=== PATIENT | female | born 1965 | race Caucasian/White ===

== ENCOUNTER 2016-08-21 09:50 | Day surgery (SDC) | payer BC ==
[2016-08-20 08:40] VITALS: BMI 18.0
[~2016-08-21 09:50] MED LIST: LACTATED RINGERS 1,000 ML IV SCH; LIDOCAINE 1% 20 ML VIAL (10MG/ML) FOR IV START INTRADERMA PRN
[2016-08-21 10:06] VITALS: RESP 16; TEMP 97.7
[2016-08-21] MEDS ORDERED: PROPOFOL 10 MG/ML 20 ML VIAL IV ONE (10:24)
--- NOTE | 2016-08-21 10:28 | P.GSHP ---
History of Present Illness H&P Date: 08/21/16 Chief Complaint: Family history of colon cancer 51 years old female presents for screening colonoscopy. Last colonoscopy was at age 38 for chronic diarrhea. Strong family history of colon cancer in mother age 50, father at age 55 and maternal uncles. No change in bowel habits. No weight loss or loss of appetite - Review of Systems Comment: All negative except stated in history of present illness Past Medical History Past Medical History: Thyroid Disorder Additional Past Medical History / Comment(s): intermittent abd pain and bleeding with stools,PM>1yr History of Any Multi-Drug Resistant Organisms: None Reported Past Surgical History: Back Surgery, Orthopedic Surgery Additional Past Surgical History / Comment(s): lumbar fusion,ORIF lt clavicle Past Anesthesia/Blood Transfusion Reactions: Motion Sickness, Postoperative Nausea & Vomiting (PONV) Smoking Status: Never smoker Past Alcohol Use History: Occasional Past Drug Use History: None Reported - Past Family History Mother Family Medical History: No Reported History Father Family Medical History: Cancer, Myocardial Infarction ([place]) Additional Family Medical History / Comment(s): colon Medications and Allergies Home Medications Medication Instructions Recorded Confirmed Type Levothyroxine Sodium [Synthroid] 2,580 mcg PO QAM 08/20/16 08/21/16 History Allergies Allergy/AdvReac Type Severity Reaction Status Date / Time No Known Allergies Allergy Verified 08/21/16 10:04 Surgical - Exam Vital Signs Temp Pulse Resp BP Pulse Ox 97.7 F 68 16 105/67 99 08/21/16 10:06 08/21/16 10:06 08/21/16 10:06 08/21/16 10:06 08/21/16 10:06 Constitutional: General Appearance: well-developed Psychiatric: Insight: good judgement. Orientation: to time, place, and person. Head: Head: normocephalic and atraumatic. Eyes: Lids and Conjunctivae: no discharge or pallor and non-injected. Sclerae: non-icteric. ENMT: Oropharynx: moist mucous membranes. Abdomen: Bowel Sounds: normal. Inspection and Palpation: no tenderness or guarding and soft and non-distended. Musculoskeletal:: Motor Strength and Tone: normal and normal tone. Joints, Bones , and Muscles: normal movement of all extremities. Extremities: no cyanosis or edema. Neurologic: Gait and Station: normal gait and station. Cranial Nerves: grossly intact. Assessment and Plan (1) Family history of colon cancer Status: Acute Plan: 1. Screening colonoscopy 2. Informed consent obtained for colonoscopy with possible biopsy. The risks, benefits and potential complications explained including bleeding and perforation
--- NOTE | 2016-08-21 10:48 | P.OP ---
Date of Procedure: 08/21/16 Preoperative Diagnosis: Family history of colon cancer in multiple first degree relatives including both parents Postoperative Diagnosis: Same Procedure(s) Performed: Colonoscopy without biopsy Implants: Anesthesia: MAC Surgeon: Emmy Obrien Pathology: none sent Condition: stable Disposition: PACU Indications for Procedure: 51 years old female with strong family history of colon cancer in both parents, maternal uncles presents for screening colonoscopy. Last colonoscopy was 13 years ago. Informed consent obtained and patient elected to undergo colonoscopy with possible biopsy Operative Findings: Normal colonoscopy. Small internal hemorrhoids Description of Procedure: The patient was brought to the endoscopy suite and placed in lateral decubitus position. IV sedation was given as per anesthesia team. Patient was on continuous vitals and pulse oximetry monitoring throughout the procedure. A timeout was performed to verify correct patient and correct procedure. Perianal examination did not show any external hemorrhoids. Digital rectal examination was performed. No masses or gross blood. A well-lubricated Olympus colonoscope was passed per rectally and was gradually advanced beyond the sigmoid colon, splenic flexure, transverse colon, hepatic flexure and cecum. The ileocecal valve was visualized as well as the appendiceal orifice . The colonoscope was gradually withdrawn inspecting all the mucosal surfaces. Bowel prep was fair. No polyps, masses, AV malformations noted. No diverticulosis. The scope was gradually withdrawn and retroflexed in the rectum . Grade 1 internal hemorrhoids seen. Total withdrawal time was greater than 6 minutes . Patient tolerated the procedure well and was taken to post anesthesia care unit in stable condition. Recommend repeat colonoscopy in 5 years .
[2016-08-21] MEDS ORDERED: diphenhydrAMINE 50 MG/ML 1 ML VIAL IVP ONE (11:19)
[2016-08-21] MEDS ORDERED: DEXAMETHASONE SOD PHOSPHATE 10 MG/ML 1 ML VIAL IV ONE ×2 (11:21→12:47)
[2016-08-21] MEDS ORDERED: LACTATED RINGERS 1,000 ML IV ONE (12:08)
[2016-08-21] MEDS ORDERED: HYDROmorphone 2 MG/ML 1 ML SYRINGE IVP ONE (12:09)
[2016-08-21 13:05] VITALS: BP 111/74; PULSE 66
== END 2016-08-21 13:28 | disposition home or self-care (01) ==
LOC: ORWHC2ENDO 09:50
PROVIDERS: ATTEND Surgery
DX: Z12.11 Encounter for screening for malignant neoplasm of colon (principal); K64.0 First degree hemorrhoids; Z80.0 Family history of malignant neoplasm of digestive organs; E07.9 Disorder of thyroid, unspecified; Z79.899 Other long term (current) drug therapy
CPT/HCPCS: J1170; J1200; J1100; J2704; G0105

== ENCOUNTER → 2019-10-07 | Outpatient (CLI) | payer OTHER ==
[2019-10-07 15:09] LABS: Basophils # (A) 0.1 k/uL (0-0.2); Basophils % (A) 1 %; Eosinophils # (A) 0.3 k/uL (0-0.7); Eosinophils % (A) 5 %; HCT 38.6 % (34.0-46.0); HGB 13.2 gm/dL (11.4-16.0); Lymphocytes % (A) 30 %; MCH 30.9 pg (25.0-35.0); MCHC 34.1 g/dL (31.0-37.0); MCV 90.5 fL (80.0-100.0); Monocytes # (A) 0.3 k/uL (0-1.0); Monocytes % (A) 5 %; Neutrophils # (A) 3.8 k/uL (1.3-7.7); Neutrophils % (A) 57 %; Platelet Count 307 k/uL (150-450); RBC 4.26 m/uL (3.80-5.40); RDW 12.2 % (11.5-15.5); WBC 6.7 k/uL (3.8-10.6)
[2019-10-08 00:21] LABS: Hemoglobin A1C 5.1 % (4.0-6.0)
[2019-10-08 01:14] LABS: ALT 25 U/L (8-44); AST 21 U/L (13-35); African American GFR (CKD) 95.5 (60.0-200.0); Albumin/Globulin Ratio 1.95 (1.60-3.17); Alkaline Phosphatase 71 U/L (41-126); Carbon Dioxide 25.8 mmol/L (21.6-31.8); Chloride 104 mmol/L (96-109); Chol/HDL Ratio 1.94; Cholesterol 151 mg/dL (0-200); Globulin 2.2 g/dL (1.6-3.3); Glucose 96 mg/dL (70-110); LDL Cholesterol,Calculated 61.6 mg/dL (0.0-131.0); Non-African American GFR(CKD) 82.4 (60.0-200.0); Sodium 139 mmol/L (135-145); Total Protein 6.5 g/dL (6.2-8.2)
== END | disposition home or self-care (01) ==
LOC: LABWHC1 13:48
PROVIDERS: ATTEND Internal Medicine Critical Care Medicine
DX: Z00.00 Encounter for general adult medical examination without abnormal findings (principal); R53.83 Other fatigue; E55.9 Vitamin D deficiency, unspecified; Z79.899 Other long term (current) drug therapy
CPT/HCPCS: 36415; 80053; 80061; 82248; 82306; 83036; 84439; 84443; 85025

== ENCOUNTER → 2022-01-24 | Outpatient (CLI) | payer BC ==
[2022-01-24 19:10] LABS: Basophils % (A) 1.5 %; Eosinophils # (A) 0.31 X 10*3/uL (0.04-0.35); Eosinophils % (A) 4.6 %; HCT 39.9 % (37.2-46.3); Immature Grans, Automated 0.1 %; Lymphocytes # (A) 1.72 X 10*3/uL (0.90-5.00); Lymphocytes % (A) 25.7 %; MCH 29.1 pg (27.0-32.0); MCHC 32.6 g/dL (32.0-37.0); MCV 89.3 fL (80.0-97.0); Mean Platelet Volume 9.5 fL (9.5-12.2); Monocytes # (A) 0.43 X 10*3/uL (0.20-1.00); Monocytes % (A) 6.4 %; NRBC Per 100 WBC 0 /100 WBCS (0.0-0.0); Neutrophils # (A) 4.12 X 10*3/uL (1.80-7.70); Neutrophils % (A) 61.7 %; Platelet Count 331 X 10*3/uL (140-440); RBC 4.47 X 10*6/uL (4.10-5.20); RDW 12.2 % (11.5-14.5); WBC 6.69 X 10*3/uL (4.50-10.00)
[2022-01-24 20:53] LABS: Chol/HDL Ratio 2.06 Ratio
[2022-01-24 21:08] LABS: ALT 27 U/L (8-44); AST 29 U/L (13-35); African American GFR (CKD) 94.2 (60.0-200.0); Albumin 4.6 g/dL (3.8-4.9); Albumin/Globulin Ratio 1.84 (1.60-3.17); Alkaline Phosphatase 69 U/L (41-126); BUN/Creat Ratio 17.13 Ratio (12.00-20.00); Bilirubin, Conjugated <0.20 mg/dL (0.20-0.40); Blood Urea Nitrogen 13.7 mg/dL (9.0-27.0); Calcium 9.3 mg/dL (8.7-10.3); Carbon Dioxide 24.4 mmol/L (20.0-27.5); Chloride 101 mmol/L (96-109); Globulin 2.5 g/dL (1.6-3.3); Glucose 132 mg/dL (70-110); Non-African American GFR(CKD) 81.3 (60.0-200.0); Potassium 4.1 mmol/L (3.5-5.5); Sodium 139 mmol/L (135-145); Total Protein 7.1 g/dL (6.2-8.2)
== END | disposition home or self-care (01) ==
LOC: LABWHC1 12:32
PROVIDERS: ATTEND Internal Medicine Critical Care Medicine
DX: Z00.00 Encounter for general adult medical examination without abnormal findings (principal); C44.91 Basal cell carcinoma of skin, unspecified; E03.9 Hypothyroidism, unspecified
CPT/HCPCS: 36415; 80053; 80061; 82248; 82306; 83036; 83721; 84439; 84443; 85025

== ENCOUNTER → 2024-08-25 | Outpatient (CLI) | payer BC ==
--- NOTE | 2024-08-25 08:43 | MM ---
Reason for Exam: Screening (asymptomatic). Last mammogram was performed 16 year(s) and 6 month(s) ago. Patient History: Menarche at age 12. First Full-Term at age 33. Late child-bearing (after 30). Postmenopausal. Other cancer, age 38. Currently using Unspecified Hormone, beginning at age 37 for 4 years. Risk Values: Mellissa 5 year model risk: 1.9%. NCI Lifetime model risk: 8.9%. Prior Study Comparison: 08/30/2005 Bilateral Diagnostic Mammogram, [facility]. 10/02/2006 Bilateral Diagnostic Mammogram, [facility]. 02/29/2008 Bilateral Screening Mammogram, [facility]. Tissue Density: The breasts are heterogeneously dense, which may obscure small masses. Findings: Analyzed By CAD. Right breast: There is no suspicious group of microcalcifications or new suspicious mass. Left breast: Focal asymmetry upper outer quadrant 7.7 cm the nipple posterior depth. Overall Assessment: Incomplete: need additional imaging evaluation, BI-RAD 0 Management: Diagnostic Mammogram of the left breast. [facility] will attempt to contact patient to return for supplemental views and ultrasound if indicated. Patient should continue monthly self-breast exams. A clinical breast exam by your physician is recommended on an annual basis. This exam should not preclude additional follow-up of suspicious palpable abnormalities. Note on Mellissa scores and lifetime risk: 1. A Mellissa score greater than 3% is considered moderate risk. If this is the case, consider specialist referral to assess eligibility for a risk reducing agent. 2. If overall lifetime risk for the development of breast cancer is 20% or higher, the patient may qualify for future screening with alternating mammogram and breast MRI. [facility], , 08/25/2024 8:36 AM. Electronically signed and approved by: Chava Ochoa DO
--- NOTE | 2024-08-26 12:10 | BD ---
EXAMINATION TYPE: Axial Bone Density DATE OF EXAM: 08/25/2024 CLINICAL HISTORY: 59 years old Female. ICD-10 CODE: M85.88 OTH DISRD OF BONE DENSITY , Additional H istory: Height: 65 Weight: 120 FRAX RISK QUESTIONS: History of Fracture in Adulthood: yes, multiple Secondary Osteoporosis: RISK FACTORS HISTORY OF: Spine Fracture: thoracic fx When: 2023 Surgery to Spine/Hip(right/left)/Wrist (right/left): L5-S1 fusion with hardware When: 2007 MEDICATIONS: Thyroid Medications: Which medication: Levothyroxine How Lon years EXAM MEASUREMENTS: Bone mineral densitometry was performed using the [employer] System. Bone mineral density about the R hip (g/cm2): 0.964 Bone mineral density about the L hip (g/cm2): 0.869 T Score values are as follows: -----R Neck: -0.7 -----L Neck: -1.4 -----R Total: -0.3 -----L Total: -1.1 Z Score values are as follows: -----R Neck: 0.8 -----L Neck: 0.1 -----R Total: 0.9 -----L Total: 0.1 First dexa at [facility] FRAX%s: The graph provided illustrates a 12.2% chance for a major osteoporotic fx and a 1.2% chance f or the hips probability for fx in 10 years time. IMPRESSION: Osteopenia (T Score between -2.5 and -1). There is slightly increased risk of fracture and the patient may be considered for treatment. Re-Screen 2-5 years. NOTE: T-SCORE=SD OF THE YOUNG ADULT MEAN. [facility], , 08/26/2024 12:08 PM
== END | disposition home or self-care (01) ==
LOC: RADMAMWWP 07:44
PROVIDERS: ATTEND Internal Medicine Critical Care Medicine
DX: Z12.31 Encounter for screening mammogram for malignant neoplasm of breast (principal); M85.88 Other specified disorders of bone density and structure, other site; M85.89 Other specified disorders of bone density and structure, multiple sites; R92.333 Mammographic heterogeneous density, bilateral breasts; Z78.0 Asymptomatic menopausal state
CPT/HCPCS: 77063; 77067; 77080

== ENCOUNTER → 2024-08-27 | Outpatient (CLI) | payer BC ==
--- NOTE | 2024-08-27 09:10 | MM ---
Reason for Exam: Additional evaluation requested from abnormal screening. Last screening mammogram was performed less than 1 month ago. Patient History: Menarche at age 12. First Full-Term at age 33. Late child-bearing (after 30). Postmenopausal. Patient has history of breast feeding. Other cancer, age 38. Currently using Unspecified Hormone, beginning at age 37 for 4 years. Risk Values: Mellissa 5 year model risk: 1.9%. NCI Lifetime model risk: 8.9%. Prior Study Comparison: 10/02/2006 Bilateral Diagnostic Mammogram, [facility]. 02/29/2008 Bilateral Screening Mammogram, [facility]. 08/25/2024 Bilateral MG 3D screening mammo w/cad, [facility]. Tissue Density: Left: The breasts are heterogeneously dense, which may obscure small masses. Findings: Analyzed By CAD. No new suspicious masses, calcifications or distortions. Overall Assessment: Benign, BI-RAD 2 Management: Screening Mammogram of both breasts in 1 year. Results were given to the patient verbally at the time of exam. Patient should continue monthly self-breast exams. A clinical breast exam by your physician is recommended on an annual basis. This exam should not preclude additional follow-up of suspicious palpable abnormalities. Note on Mellissa scores and lifetime risk: 1. A Mellissa score greater than 3% is considered moderate risk. If this is the case, consider specialist referral to assess eligibility for a risk reducing agent. 2. If overall lifetime risk for the development of breast cancer is 20% or higher, the patient may qualify for future screening with alternating mammogram and breast MRI. [facility], , 08/27/2024 9:07 AM. Electronically signed and approved by: Chava Ochoa DO
== END | disposition home or self-care (01) ==
LOC: RADMAMWWP 08:42
PROVIDERS: ATTEND Internal Medicine Critical Care Medicine
DX: R92.8 Other abnormal and inconclusive findings on diagnostic imaging of breast (principal); R92.332 Mammographic heterogeneous density, left breast; Z78.0 Asymptomatic menopausal state
CPT/HCPCS: 77061; 77065